=== PATIENT | female | born 1960 | race Caucasian/White ===

== ENCOUNTER 2021-10-27 06:48 | Day surgery (SDC) | payer OTHER ==
[2021-10-23 11:37] VITALS: BMI 29.9
[2021-10-27] MEDS ORDERED: LIDOCAINE HCL/PF 2% SDV 5ML VIAL ONE (07:33)
[2021-10-27] MEDS ORDERED: PROPOFOL 20 ML ONE ×4 (07:33)
[2021-10-27 08:41] VITALS: TEMP 97.7
[2021-10-27 08:55] VITALS: BP 140/78; PULSE 72
== END 2021-10-27 08:55 | disposition home or self-care (01) ==
LOC: FASU-ENDO 06:48
PROVIDERS: ATTEND Internal Medicine Gastroenterology
PROC: 0DJD8ZZ Inspection of Lower Intestinal Tract, Via Natural or Artificial Opening Endoscopic (ICD-10-PCS; principal; 2021-10-27 08:20)
DX: Z12.11 Encounter for screening for malignant neoplasm of colon (principal); Z83.71 Family history of colonic polyps